=== PATIENT | female | born 1985 | race Caucasian/White ===

== ENCOUNTER 2018-05-27 18:00 | Emergency (ER) | payer MEDICAID ==
[~2018-05-27] VITALS: Ht 165.1 cm; Wt 142.9 kg
[2018-05-27 18:16] VITALS: BP 133/73
--- NOTE | 2018-05-27 18:23 | NUR ---
Patient ambulated to bed 2. RN evaluating patient at bedside.
--- NOTE | 2018-05-27 18:33 | NUR ---
LAB AT BEDSIDE.
--- NOTE | 2018-05-27 18:33 | NUR ---
32/ F [employer], C/O OF SPOTTING EARLIER TODAY, 7 WEEKS . PATIENT STATES SHE IS NO LONGER SPOTTING BUT HAS NAUSEA AND FEELS WEAK X 1 WEEK. DENIES DISCHARGE, CRAMPING, OR PELVIC PAIN. STATES BLEEDING WAS UNPROVOKED. AOX4, WITH STEADT GAIT.
[2018-05-27 18:51] LABS: BASOPHILS % (AUTO) 0.3 % (0.0-2.0); EOSINOPHILS # (AUTO) 0.1 K/uL (0-0.4); EOSINOPHILS % (AUTO) 0.8 % (0.0-4.0); HEMOGLOBIN 12.2 g/dL (12.0-16.0); LYMPHOCYTES # (AUTO) 2.2 K/uL (2.5-16.5); LYMPHOCYTES % (AUTO) 19.9 % (20.5-51.1); MEAN CORPUSCULAR HEMOGLOBIN 26 pg (27-31); MEAN CORPUSCULAR HGB CONC 32 g/dL (33-37); MEAN CORPUSCULAR VOLUME 81.5 fL (80-94); MONOCYTES # (AUTO) 0.5 K/uL (0.8-1.0); MONOCYTES % (AUTO) 4.3 % (1.7-9.3); NEUTROPHILS # (AUTO) 8.1 K/uL (1.8-7.7); NEUTROPHILS % (AUTO) 74.7 % (42.2-75.2); PLATELET COUNT (AUTO) 317 K/uL (140-450); RED BLOOD CELL COUNT(AUTO) 4.67 MIL/uL (4.20-5.40); RED CELL DISTRIBUTION WIDTH 15.6 % (11.6-13.7); WHITE BLOOD COUNT (AUTO) 10.9 K/uL (4.8-10.8)
--- NOTE | 2018-05-27 19:10 | NUR ---
PT IS LYING IN BED, VSS. PT STATES SHE IS NO LONGWER BLEEDING AND HAS 0/10 PAIN. ER MD MADE AWARE.
--- NOTE | 2018-05-27 19:18 | NUR ---
Pt report given to DAVID KOROMA. Transfer of care at this time.
--- NOTE | 2018-05-27 19:31 | NUR ---
Dr. Riojas evaluating patient at bedside.
[2018-05-27 20:05] VITALS: BP 127/78
--- NOTE | 2018-05-27 20:05 | NUR ---
Patient discharged with v/s stable. Written and verbal after care instructions given and explained. Patient verbalized understanding. Ambulatory with steady gait. All questions addressed prior to discharge. Advised to follow up with PMD.
== END 2018-05-27 20:05 | disposition home or self-care (01) ==
LOC: MED 18:00
DX: O20.8 Other hemorrhage in early pregnancy (principal); O99.211 Obesity complicating pregnancy, first trimester; Z3A.01 Less than 8 weeks gestation of pregnancy
CPT/HCPCS: 76817; 81002; 81025; 84702; 85025; 86900; 86901; 99284; Q0092